=== PATIENT | male | born 1955 | race Two or more races ===

== ENCOUNTER 2016-10-02 20:22 | Emergency (ER) | payer MEDICAID ==
[2016-10-02 20:37] VITALS: BMI 27.7
--- NOTE | 2016-10-02 21:20 | ED PDOC ---
Arrival/HPI <Pérez Brooks - Last Filed: 10/02/16 21:33> - General Historian: Patient <Lilliana Rodriguez - Last Filed: 10/03/16 02:34> - General Chief Complaint: Psychiatric Evaluation Time Seen by Provider: 10/02/16 20:46 - History of Present Illness Narrative History of Present Illness (Text): 10/02/16 21:17 61yr old male with prior hx of cva and AMS presents today sent in from residential for AMS, aggressive behavior, trying to elope from residential today. pt denies headache, denies trauma, denies any pain. denies abdominal pain. (Lilliana Rodriguez) Past Medical History - Provider Review Nursing Documentation Reviewed: Yes - Travel History Have you recently traveled outside [place] w/in the past 3 mons?: No - Tetanus Immunization Tetanus Immunization: Unknown - Neurological HX Cerebrovascular Accident: (Yes; 2009) Hx Dementia: (yes; since 2009) Other/Comment: Aphasia - Psychiatric Hx Substance Use: (poor historian) <Lilliana Rodriguez - Last Filed: 10/03/16 02:34> Family/Social History - Physician Review Nursing Documentation Reviewed: Yes Family/Social History: Unknown Family HX Smoking Status: Poor histo Hx Alcohol Use: (poor historian) Hx Substance Use: (poor historian) <Lilliana Rodriguez - Last Filed: 10/03/16 02:34> Allergies/Home Meds <Pérez Brooks - Last Filed: 10/02/16 21:33> <Lilliana Rodriguez - Last Filed: 10/03/16 02:34> Allergies/Adverse Reactions: Allergies No Known Allergies Allergy (Verified 10/02/16 20:35) Home Medications: Home Meds Medication Instructions Recorded Confirmed Acetaminophen [Tylenol 325mg tab] 325 mg PO Q4H 10/02/16 10/02/16 Aspirin [Aspirin Chewable] 81 mg PO DAILY 10/02/16 10/02/16 Atorvastatin [Lipitor] 10 mg PO DAILY 10/02/16 10/02/16 Ramipril [Altace] 10 mg PO DAILY 10/02/16 10/02/16 Review of Systems - Review of Systems Systems not reviewed;Unavailable: Altered Mental Status Respiratory: absent: SOB Cardiovascular: absent: Chest Pain Gastrointestinal: absent: Abdominal Pain Musculoskeletal: absent: Arthralgias Neurological: absent: Headache <Lilliana Rodriguez - Last Filed: 10/03/16 02:34> Physical Exam Vital Signs Reviewed: Yes Temperature: Afebrile Blood Pressure: Hypertensive Pulse: Tachycardic Respiratory Rate: Normal Appearance: Positive for: Well-Appearing, Non-Toxic, Comfortable Pain Distress: None Mental Status: Positive for: Agitated - Systems Exam Head: Present: Atraumatic Pupils: Present: PERRL Extroacular Muscles: Present: EOMI Mouth: Present: Moist Mucous Membranes Neck: Present: Normal Range of Motion Respiratory/Chest: Present: Clear to Auscultation, Good Air Exchange. No: Respiratory Distress, Accessory Muscle Use Cardiovascular: Present: Regular Rate and Rhythm, Normal S1, S2. No: Murmurs Abdomen: No: Tenderness, Distention Upper Extremity: Present: Other (contracted right hand.) Lower Extremity: Present: Normal Inspection, Normal ROM Skin: Present: Warm, Dry Psychiatric: Present: Alert <Lilliana Rodriguez - Last Filed: 10/03/16 02:34> Vital Signs Temp Pulse Resp BP Pulse Ox 10/03/16 02:13 98.5 F 61 16 147/76 98 10/02/16 23:39 87 18 146/77 100 10/02/16 20:41 98.8 F 110 H 20 153/72 H 100 Medical Decision Making <Pérez Brooks - Last Filed: 10/02/16 21:33> <Lilliana Rodriguez - Last Filed: 10/03/16 02:34> ED Course and Treatment: 10/02/16 21:20 Patient is nontoxic . appears agitated. hitting himself in the head. doesnt want to be here. sent by residential for evaluation. pt placed into restrains as he is yelling and hitting himself in the head and swinging arms at others. CBC WNL CMP WNL Tylenol WNL Salicylate WNL Alcohol level WNL Urine drug screen: wnl UA; wnl cxr: wnl ekg sinus tachycardia at 101 bpm normal axis normal intervals and no ST elevations ct head; FINDINGS: Brain: No acute intracranial hemorrhage. A large area of decreased attenuation is identified within the distribution of the anterior branches of the left middle cerebral artery, consistent with prior cerebral infarction. Otherwise age-appropriate periventricular white matter disease. No edema. Ventricles: Subtle ex vacuo dilatation of the frontal horn of the left lateral ventricle. Otherwise ageappropriate ventriculomegaly. Bones: No acute displaced fracture. Sinuses: Unremarkable as visualized. No acute sinusitis. Mastoid air cells: Unremarkable as visualized. No mastoid effusion. IMPRESSION: No acute intracranial hemorrhage, or suspicious mass effect. Findings consistent with prior cerebral infarction within the distribution of the anterior branches of the left middle cerebral artery, as detailed above pt is medically cleared for PES evaluation Patient was seen and evaluated by PES screener: yris. pt cleared psychiatrically to return to residential. pt remains calm in er. restrains removed; I discussed all results in depth with the patient. pt to be d/c back to residential. Impression; aggressive behavior follow up with Primary care physician return if symptoms worsen,persist or if new symptoms develop. (Lilliana Rodriguez) - Lab Interpretations Lab Results: 10/03/16 01:45 10/02/16 21:30 Lab Results 10/03/16 01:45: WBC 8.7, RBC 4.56, Hgb 12.3 L, Hct 38.0 L, MCV 83.3, MCH 27.0, MCHC 32.4, RDW 13.1, Plt Count 139, MPV 12.2 H, Gran % 68.0, Lymph % (Auto) 23.4 , Coleman % (Auto) 7.4 H, Eos % (Auto) 1.0 L, Baso % (Auto) 0.2, Gran # 5.91, Lymph # 2.0, Coleman # 0.6, Eos # 0.1, Baso # 0.02 10/02/16 23:00: Urine Opiates Screen Negative, Urine Methadone Screen Negative, Ur Barbiturates Screen Negative, Ur Phencyclidine Scrn Negative, Ur Amphetamines Screen Negative, U Benzodiazepines Scrn Negative, U Oth Cocaine Metabols Negative, U Cannabinoids Screen Negative 10/02/16 23:00: Urine Color Yellow, Urine Appearance Clear, Urine pH 7.0, Ur Specific [place] 1.020, Urine Protein Negative, Urine Glucose (UA) Negative, Urine Ketones Negative, Urine Blood Negative, Urine Nitrate Negative, Urine Bilirubin Negative, Urine Urobilinogen 1.0 H, Ur Leukocyte Esterase Negative 10/02/16 21:30: WBC Cancelled, RBC Cancelled, Hgb Cancelled, Hct Cancelled, MCV Cancelled, MCH Cancelled, MCHC Cancelled, RDW Cancelled, Plt Count Cancelled, MPV Cancelled, Gran % Cancelled, Lymph % (Auto) Cancelled, Coleman % (Auto) Cancelled, Eos % (Auto) Cancelled, Baso % (Auto) Cancelled, Gran # Cancelled, Lymph # Cancelled, Coleman # Cancelled, Eos # Cancelled, Baso # Cancelled 10/02/16 21:30: Alcohol, Quantitative < 10 10/02/16 21:30: Salicylates < 1 L, Acetaminophen < 10.0 L 10/02/16 21:30: Sodium 142, Potassium 3.9, Chloride 101, Carbon Dioxide 26, Anion Gap 19, BUN 17, Creatinine 1.0, Est GFR ( Amer) > 60, Est GFR (Non- Af Amer) > 60, Random Glucose 107, Calcium 9.5, Total Bilirubin 0.6, AST 33, ALT 40, Alkaline Phosphatase 51, Total Protein 8.4 H, Albumin 4.6, Globulin 3.9 , Albumin/Globulin Ratio 1.2 - RAD Interpretation Radiology Orders: 10/02/16 20:54 HEAD W/O CONTRAST [CT] Stat 10/02/16 20:55 CHEST PORTABLE [RAD] Stat - 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 GABY has examined the patient and agrees with the treatment plan. <Pérez Brooks - Last Filed: 10/02/16 21:33> Disposition/Present on Arrival <Pérez Brooks - Last Filed: 10/02/16 21:33> - Present on Arrival Any Indicators Present on Arrival: No History of DVT/PE: No History of Uncontrolled Diabetes: No Urinary Catheter: No History of Decub. Ulcer: No History Surgical Site Infection Following: None - Disposition Have Diagnosis and Disposition been Completed?: Yes Disposition Time: 02:11 Patient Plan: Discharge <Lilliana Rodriguez - Last Filed: 10/03/16 02:34> - Disposition Diagnosis: Aggressive behavior Disposition: TRANSF TO [facility] Patient Problems: Current Active Problems Problem Status Onset Aggressive behavior Acute Condition: GOOD Additional Instructions: follow up with Primary care physician return if symptoms worsen,persist or if new symptoms develop. Referrals: Roverto Rizo MD [Primary Care Provider] - Follow up with primary
[2016-10-02 22:04] LABS: ALB/GLOB RATIO 1.2 (1.1-1.8); ALKALINE PHOSPHATASE 51 U/L (38-133); ALT/SGPT 40 U/L (7-56); AST/SGOT 33 U/L (15-59); BILIRUBIN,TOTAL 0.6 mg/dL (0.2-1.3); BLOOD UREA NITROGEN 17 mg/dL (7-21); CALCIUM 9.5 mg/dL (8.4-10.5); CARBON DIOXIDE 26 mmol/L (21-33); CHLORIDE 101 mmol/L (98-107); GFR AFRICAN-AMERICAN > 60; GLUCOSE,RANDOM 107 mg/dL (70-110); POTASSIUM 3.9 mmol/L (3.6-5.0); SODIUM 142 mmol/L (132-148); TOTAL PROTEIN 8.4 g/dL (5.8-8.3)
[2016-10-02 23:24] LABS: URINE BILIRUBIN NEGATIVE (NEGATIVE); URINE BLOOD NEGATIVE (NEGATIVE); URINE GLUCOSE (UA) NEGATIVE (NEGATIVE); URINE KETONE NEGATIVE (NEGATIVE); URINE LEUKOCYTE ESTERASE NEGATIVE Leu/uL (NEGATIVE); URINE PROTEIN NEGATIVE mg/dL (<30 mg/dL)
[2016-10-02 23:28] LABS: URINE APPEARANCE CLEAR (CLEAR); URINE COLOR YELLOW (YELLOW)
--- NOTE | 2016-10-02 23:51 | CT ---
EXAM: CT Head Without Intravenous Contrast CLINICAL HISTORY: 61 years old, male; Signs and symptoms; Altered mental status/memory loss; Confusion or disorientation; Additional info: AMS TECHNIQUE: Axial computed tomography images of the head/brain without intravenous contrast. This CT exam was performed using one or more of the following dose reduction techniques: automated exposure control, adjustment of the mA and/or kV according to patient size, and/or use of iterative reconstruction technique. COMPARISON: No relevant prior studies available. FINDINGS: Brain: No acute intracranial hemorrhage. A large area of decreased attenuation is identified within the distribution of the anterior branches of the left middle cerebral artery, consistent with prior cerebral infarction. Otherwise age-appropriate periventricular white matter disease. No edema. Ventricles: Subtle ex vacuo dilatation of the frontal horn of the left lateral ventricle. Otherwise age-appropriate ventriculomegaly. Bones: No acute displaced fracture. Sinuses: Unremarkable as visualized. No acute sinusitis. Mastoid air cells: Unremarkable as visualized. No mastoid effusion. IMPRESSION: No acute intracranial hemorrhage, or suspicious mass effect. Findings consistent with prior cerebral infarction within the distribution of the anterior branches of the left middle cerebral artery, as detailed above
[2016-10-03 01:53] LABS: ADD MANUAL DIFF? NO
[2016-10-03 01:55] LABS: BASO # 0.02 K/mm3 (0.0-2.0); BASO % 0.2 % (0.0-3.0); EOS # 0.1 (0.0-0.7); GRAN # 5.91 (1.4-6.5); LYMPH % 23.4 % (22.0-35.0); MEAN CELL VOLUME 83.3 fL (80.0-105.0); MEAN CORPUSCULAR HGB CONC 32.4 g/dl (31.0-37.0); MEAN PLATELET VOLUME 12.2 fl (7.0-11.0); MONO # 0.6 (0.1-0.6); MONO % 7.4 % (1.0-6.0); PLATELET COUNT 139 10^3/uL (120.0-450.0); RED CELL DISTRIBUTION WIDTH 13.1 % (11.5-14.5); WHITE BLOOD COUNT 8.7 10^3/ul (4.5-11.0)
[2016-10-03 02:13] VITALS: BP 147/76; PULSE 61; RESP 16; TEMP 98.5; O2SAT 98
--- NOTE | 2016-10-03 07:47 | RAD ---
HISTORY: pes eval COMPARISON: No prior. FINDINGS: LUNGS: Lateral right hemithoracic mild pleural-parenchymal reaction projects over a old healed right rib fractures. . Possible of a left mid lung zone pleural-parenchymal changes as well. No gross fractures here appreciated. Chronicity of this appearance is unknown. Probable left costocartilaginous junctional prominent calcification. PLEURA: No significant pleural effusion identified, no pneumothorax apparent. CARDIOVASCULAR: Mild cardiomegaly. Unfolded thoracic aorta OSSEOUS STRUCTURES: Thoracic spondylosis. Old healed right rib fractures VISUALIZED UPPER ABDOMEN: Normal. OTHER FINDINGS: Left neck surgical clips IMPRESSION: Old healed right rib fractures with associated right pleural parenchymal thickening/ reaction suggested. Summation of soft tissues versus left mid lung zone pleural parenchymal pathology . . Left-sided findings are indeterminate. If clinically indicated, consider noncontrast CT chest to further evaluate.
--- NOTE | 2016-10-03 21:49 | CARD ---
APPROVED REPORT EKG Measurement Heart [id number] <Conclusion> Sinus tachycardia Possible Left atrial enlargement Cannot rule out Anterior infarct, age undetermined Abnormal ECG
== END 2016-10-03 03:45 ==
LOC: ED 20:22 → MERGE 20:22 → ED 10-03 03:45
DX: R46.89 Other symptoms and signs involving appearance and behavior (principal); R45.1 Restlessness and agitation

== ENCOUNTER 2016-10-03 13:06 | Inpatient (IN) | payer MEDICAID ==
[2016-10-03 13:12] VITALS: BMI 27.4
[2016-10-03 13:17] VITALS: O2SAT 97
--- NOTE | 2016-10-03 14:33 | ED PDOC ---
Arrival/HPI - General Chief Complaint: Psychiatric Evaluation Time Seen by Provider: 10/03/16 14:32 Historian: Patient - History of Present Illness Narrative History of Present Illness (Text): 10/03/16 14:32 This 61 yo male with prior hx of cva and AMS is brought to this ED by BLS for evaluation of combative, and aggressive behavior x RAIL TRANSIT OPERATOR. Patient was recently discharged from this hospital for same complains after clear by PES. Patient went back to long-term, in which he continued with his aggressive behavior. Denies new complains. Time/Duration: Prior to Arrival Symptom Course: Unchanged Context: Home Past Medical History - Provider Review Nursing Documentation Reviewed: Yes - Tetanus Immunization Tetanus Immunization: Unknown - Neurological HX Cerebrovascular Accident: Yes (Yes; 2009) Hx Dementia: Yes (yes; since 2009) Other/Comment: Aphasia - Psychiatric Hx Substance Use: No (poor historian) Family/Social History - Physician Review Nursing Documentation Reviewed: Yes Family/Social History: No Known Family HX Smoking Status: Unknown If Ever Smoked Hx Alcohol Use: No (poor historian) Hx Substance Use: No (poor historian) Allergies/Home Meds Allergies/Adverse Reactions: Allergies No Known Allergies Allergy (Verified 10/03/16 22:36) Home Medications: Home Meds Medication Instructions Recorded Confirmed Acetaminophen [Tylenol 325mg tab] 325 mg PO Q4H 10/02/16 10/03/16 Aspirin [Aspirin Chewable] 81 mg PO DAILY 10/02/16 10/03/16 Atorvastatin [Lipitor] 10 mg PO DAILY 10/02/16 10/03/16 Ramipril [Altace] 10 mg PO DAILY 10/02/16 10/03/16 Review of Systems - Review of Systems Constitutional: Normal. absent: Fatigue, Weight Change, Fevers Eyes: Normal ENT: Normal Respiratory: Normal Cardiovascular: Normal Gastrointestinal: Normal Genitourinary Male: Normal Musculoskeletal: Normal Skin: Normal Neurological: Normal Endocrine: Normal Hemo/Lymphatic: Normal Psychiatric: Anxiety Physical Exam Vital Signs Temp Pulse Resp BP Pulse Ox 10/03/16 20:06 69 18 138/67 97 10/03/16 16:20 75 18 141/68 97 10/03/16 13:16 98.8 F 80 16 145/72 97 Temperature: Afebrile Blood Pressure: Normal Pulse: Regular Respiratory Rate: Normal Appearance: Positive for: Well-Appearing, Non-Toxic, Comfortable Pain Distress: None - Systems Exam Head: Present: Atraumatic, Normocephalic Pupils: Present: PERRL Extroacular Muscles: Present: EOMI Conjunctiva: Present: Normal Mouth: Present: Moist Mucous Membranes Neck: Present: Normal Range of Motion Respiratory/Chest: Present: Clear to Auscultation, Good Air Exchange. No: Respiratory Distress, Accessory Muscle Use Cardiovascular: Present: Regular Rate and Rhythm, Normal S1, S2. No: Murmurs Abdomen: Present: Normal Bowel Sounds. No: Tenderness, Distention, Peritoneal Signs Back: Present: Normal Inspection. No: CVA Tenderness Upper Extremity: Present: Normal Inspection, Normal ROM, Neurovascularly Intact , Capillary Refill < 2s. No: Cyanosis, Edema Lower Extremity: Present: Normal Inspection, NORMAL PULSES, Normal ROM, Neurovascularly Intact, Capillary Refill < 2 s. No: Edema Neurological: Present: GCS=15, CN II-XII Intact, Speech Normal Skin: Present: Warm, Dry, Normal Color. No: Rashes Psychiatric: Present: Alert Medical Decision Making ED Course and Treatment: 10/03/16 19:58 I spoke with PES screener who agreed with admission DX Adjustment disorder Re-evaluation Time: 19:59 Reassessment Condition: Re-examined, Improving,but remains with symptoms - Lab Interpretations Lab Results: Lab Results 10/03/16 16:00: Alcohol, Quantitative < 10 10/03/16 16:00: Salicylates < 1 L, Acetaminophen < 10.0 L I have reviewed the lab results: Yes Interpretation: No clinic. lab abnormalty - Medication Orders Current Medication Orders: Acetaminophen (Tylenol 325mg Tab) 650 mg PO Q4H PRN PRN Reason: Pain, Mild (1-3) Al Hydrox/Mg Hydrox/Simethicone (Maalox Plus 30 Ml) 30 ml PO DAILY PRN PRN Reason: Upset Stomach Aspirin (Aspirin Chewable) 81 mg PO DAILY [facility] Last Admin: 10/04/16 08:56 Dose: 81 mg Atorvastatin Calcium (Lipitor) 10 mg PO DAILY [facility] Last Admin: 10/04/16 08:56 Dose: 10 mg Lorazepam (Ativan) 0.5 mg PO HS [facility] PRN Reason: Protocol Last Admin: 10/03/16 21:57 Dose: 0.5 mg Re-Assess: Reassess Psych Meds Document 10/03/16 22:57 DCP (Rec: 10/04/16 03:13 DCP [id number]) Reassess Psych Med Effective Magnesium Hydroxide (Milk Of Magnesia) 30 ml PO DAILY PRN PRN Reason: Constipation Ramipril (Altace) 20 mg PO DAILY [facility] Last Admin: 10/04/16 08:55 Dose: 20 mg Risperidone (Risperdal Oral Soln) 0.5 mg PO AMHS NAVIN PRN Reason: Protocol Last Admin: 10/04/16 11:01 Dose: 0.5 mg Re-Assess: Reassess Psych Meds Document 10/04/16 11:31 ABO (Rec: 10/04/16 12:35 ABO [id number]) Reassess Psych Med Effective Valproate Sodium (Depakene) 250 mg PO BID [facility] Last Admin: 10/04/16 11:01 Dose: 250 mg Zaleplon (Sonata) 5 mg PO HS PRN PRN Reason: Insomnia Last Admin: 10/03/16 21:57 Dose: 5 mg Discontinued Medications Risperidone (Risperdal Tab) 0.5 mg PO BID NAVIN PRN Reason: Protocol Last Admin: 10/04/16 08:56 Dose: 0.5 mg Re-Assess: Reassess Psych Meds Document 10/04/16 09:56 ABO (Rec: 10/04/16 10:57 ABO [id number]) Reassess Psych Med Ineffective-LIP notifed Disposition/Present on Arrival - Present on Arrival Any Indicators Present on Arrival: No History of DVT/PE: No History of Uncontrolled Diabetes: No Urinary Catheter: No History of Decub. Ulcer: No History Surgical Site Infection Following: None - Disposition Have Diagnosis and Disposition been Completed?: Yes Diagnosis: Adjustment disorder Disposition: HOSPITALIZED Disposition Time: 19:59 Patient Plan: Admission Patient Problems: Current Active Problems Problem Status Onset Adjustment disorder Acute Condition: STABLE
[2016-10-03] MEDS ORDERED: Alum-Mag Hydrox-Simethicone Susp (30 mL) PO PRN (21:22)
[2016-10-03] MEDS ORDERED: Magnesium Hydroxide Susp 30 ml UD PO PRN (21:22)
[2016-10-04 08:05] LABS: CHOLESTEROL 146 mg/dL (130-200); GLUCOSE,FASTING 84 mg/dL (65-110)
--- NOTE | 2016-10-04 11:53 | CP.PCM.HP ---
<Mayank Tran - Last Filed: 10/04/16 16:59> History of Present Illness - History of Present Illness History of Present Illness: 61M w/ PMHx of HTN, CVA, aphasia, dysarthria, hx of left CEA, presented to the hospital after trying to elope from detention. According to records patient was admitted to psychiatric unit for evaluation of AMS, and aggression, pt transferred from [facility]. Upon examination patient was able to answer yes and no questions. However when patient tried to speak he mumbled incoherent words. Patient able to shake his head "yes" "no" to questions. During medical interview patient was pleasant and non-violent. As per medical records, patient's aggressive behavior is newly noted, is no history of such type of behavior in the past. Currently patient denies headaches, changes in vision, chest pain, shortness of breath, abdominal pain. VSS. PMHx: CVA, HTN, aphasia, dysarthria PSurgHx: L CEA Allergies: NKDA Meds: as per Med Rec Present on Admission - Present on Admission Any Indicators Present on Admission: No Review of Systems - Review of Systems Review of Systems: 12 pt ROS carried out; unremarkable, except as stated in HPI Past Patient History - Tetanus Immunizations Tetanus Immunization: Unknown - Past Social History Smoking Status: Unknown If Ever Smoked - NEUROLOGICAL HX Cerebrovascular Accident: Yes (Yes; 2009) Hx Dementia: Yes (yes; since 2009) Other/Comment: Aphasia - PSYCHIATRIC Hx Substance Use: No (poor historian) - SURGICAL HISTORY Hx Surgeries: No (mention of surgery on detention chart) Meds Allergies/Adverse Reactions: Allergies Allergy/AdvReac Type Severity Reaction Status Date / Time No Known Allergies Allergy Verified 10/03/16 22:36 Physical Exam - Constitutional Appears: No Acute Distress - Head Exam Head Exam: NORMOCEPHALIC - Eye Exam Eye Exam: EOMI - ENT Exam ENT Exam: Mucous Membranes Moist - Respiratory Exam Respiratory Exam: NORMAL BREATHING PATTERN - Cardiovascular Exam Cardiovascular Exam: +S1, +S2 - GI/Abdominal Exam GI & Abdominal Exam: Soft - Neurological Exam Neurological exam: Alert - Psychiatric Exam Additional comments: pleasant non-aggressive - Skin Skin Exam: Dry, Intact Results - Vital Signs Recent Vital Signs: Last Vital Signs Temp 97.9 F 10/04/16 07:43 Pulse 91 H 10/04/16 07:43 Resp 20 10/04/16 07:43 BP 130/70 10/04/16 07:43 Pulse Ox 97 10/03/16 20:06 - Labs Labs: Laboratory Results - last 24 hr 10/04/16 10/04/16 07:15 07:15 Fasting Glucose 84 Triglycerides 63 Cholesterol 146 LDL Cholesterol Direct 71 HDL Cholesterol 47 TSH 3rd Generation 0.77 Assessment & Plan - Assessment and Plan (Free Text) Assessment: 61M w/ PMHx of HTN, CVA, aphasia, dysarthria, hx of left CEA presents to hospital from detention for aggressive and non-compliant behavior Plan: HTN -Ramipril (20mg daily) CVA -Aspirin 81mg -Lipitor 10mg -aphasia -dysarthria -Limited ROM right extremity R/o delirium, R/o dementia with behavioral disturbances and psychotic symptoms -First documented act of aggressive behavior -Valproic Acid -Risperidone -Zaleplon -As per psychiatry Diet -heart healthy diet -low fat, low Na+ From medical standpoint patient is stable, will sign-off, reconsult as needed. Further recs per psychiatry. Patient seen and examined with medical attending. Assessment and Plan discussed with medical attending. <Shannan RANDALL,[facility] - Last Filed: 10/04/16 17:27> Results - Vital Signs Recent Vital Signs: Last Vital Signs Temp 97.9 F 10/04/16 07:43 Pulse 91 H 10/04/16 07:43 Resp 20 10/04/16 07:43 BP 130/70 10/04/16 07:43 Pulse Ox 97 10/03/16 20:06 - Labs Labs: Laboratory Results - last 24 hr 10/04/16 10/04/16 07:15 07:15 Fasting Glucose 84 Triglycerides 63 Cholesterol 146 LDL Cholesterol Direct 71 HDL Cholesterol 47 TSH 3rd Generation 0.77 Attending/Attestation - Attestation I have personally seen and examined this patient.: Yes I have fully participated in the care of the patient.: Yes I have reviewed all pertinent clinical information: Yes Notes (Text): Patient was seen and examined with medical chemist .Agreed with resident assessment and plan, 61 Yrs old male with PMH of HTN,CVA(Left MCA ischemic stroke)with residual right sided weakness, dysarthia, PVD, Hyperlipidemia is admitted to Psychiatry floor for aggressive behaviour.There is no new focal weakness.He is ambulatory, his blood pressure is stable.At this time will recommend continuing Aspirin, JESSICA and statin for seconday prevention of stroke.Patient has dysarthia, as per Nursing staff, he is not having any swallowing issue , no chocking or coughing noticed during feeding.We will recommend changing diet to low cholesterol, 2 gram sodium diet.Patient LDL and HDL is in acceptable range at this time, will recommend continue current dose of lipitor. As there is no acute medical issue, we will sign off.Please call us back if any question. 10/04/16 17:23
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
--- NOTE | 2016-10-05 17:46 | PCM.PYCHPN ---
Psychiatric Progress Note - Psychiatric Progress Note Patient seen today, length of contact: 30min Patient Chief Complaint: "ke-ke-ke" Problems Identified/Issues Discussed: psychiatry educate patient about treatment plan, medication management,patient was able to communicate with sign language, was not able to tell what is his [place] language Medical Problems: h/o CVA, h/o HTN, aphasia Diagnostic Results: Lab Results 10/04/16 07:15: RPR Nonreactive 10/04/16 07:15: TSH 3rd Generation 0.77 10/04/16 07:15: Fasting Glucose 84, Triglycerides 63, Cholesterol 146, LDL Cholesterol Direct 71, HDL Cholesterol 47 10/03/16 16:00: Alcohol, Quantitative < 10 10/03/16 16:00: Salicylates < 1 L, Acetaminophen < 10.0 L Vital Signs Temp Pulse Resp BP Pulse Ox 10/05/16 16:19 106 H 105/73 10/04/16 17:35 109 H 20 115/62 10/04/16 07:43 97.9 F 91 H 20 130/70 10/03/16 20:32 20 10/03/16 20:06 69 18 138/67 97 10/03/16 16:20 75 18 141/68 97 10/03/16 13:16 98.8 F 80 16 145/72 97 DSM 5 Symptoms Update: shortly patient is 61 years old male, multiple medical issues including history of CVA, aphasia, not known previous psychiatric history, currently lives in [facility], we'll send for evaluation of agitated, aggressive behavior , altered mental status, patient needs further evaluation and stabilization, possible medications initiation and titration. Note patient came to the emergency room the prior the day of admission with the same presentation, [facility], patient was not improving, still has episodes of agitation and restless behavior. Patient is very poor and unreliable historian, was not able to participate in interview, patient was communicating through gesticulation, as well as by nodding his head, patient was keep repeating "ke-ke-ke". Overall patient was pleasant and corporative, no agitation or aggression,at times patient was smiling inappropriately. patient is compliant with the medications, treatment plan, patient is pleasant and visible on the unit, asked to be shaved, no agitation, no aggression. collaterals were obtained from the jail, as per staff patient does not have history of agitation or aggression,for the past 2 days patient was restless , wanted to leave the jail, was not able to be redirected, and this type of behavior is new for the patient. as per [facility] pt does not have h/o mental illness. patient tolerates medication well, no side effects observed or reported, aims 0 , no EPS. Impression: altered mental status Dementia with behavioral disturbances Medication Change: Yes (depakote initiated Risperdal initiated) Medical Record Reviewed: Yes Consults ordered or reviewed: medical consult appreciated, Neurology consult was called Mental Status Examination - Cognitive Function Orientation: Person Memory: Impaired Attention: Poor Concentration: Poor Association: Loose Fund of Knowledge: Poor - Mood Mood: Neutral (unable to assess but seems to beneutral) - Affect Affect: Constricted (but reactive at times patient smiles inappropriately) - Formal Thought Process Formal Thought Process: No Impairment - Suicidal Ideation Suicidal Ideation: No - Homicidal Ideation Homicidal Ideation: No Goal/Treatment Plan - Goal/Treatment Plan Need for Continued Stay: Remain at risks for inpatient hospitalization, Severe depression anxiety, Discharge may exacerbated symptoms, Severe functional impairment Progress Toward Problem(s) and Goals/Treatment Plan: milieu, structure, supportive therapy Medications from the jail reconciled see below: Acetaminophen [Tylenol 325mg tab] 325 mg PO Q4H 10/02/16 Aspirin [Aspirin Chewable] 81 mg PO DAILY 10/02/16 Atorvastatin [Lipitor] 10 mg PO DAILY 10/02/16 Ramipril [Altace] 10 mg PO DAILY 10/02/16 patient will be initiated on mood stabilizer Depakote 250 mg twice a day for mood stabilization Risperdal liquid 0.5 mg twice a day for agitation medical team consultation appreciated Neurology consultation recommended Patient legal guardian sign consent for 

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
[2016-10-07 07:45] VITALS: RESP 20
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
--- NOTE | 2016-10-07 20:12 | CON ---
DATE: 10/07/2016 HISTORY OF PRESENT ILLNESS: This is a 61-year-old male with past medical history of hypertension, CV A with aphasia and right-sided weakness residual, and the patient came to the hospital because he ___ __ from the retirement, and was getting aggressive, so came to transfer from [facility] to [facility]. Called to evaluate the patient. PAST MEDICAL HISTORY: CVA, hypertension, aphasia, dysarthria. ALLERGIES: No known drug allergy. PHYSICAL EXAMINATION: HEENT: Normocephalic, atraumatic. NECK: Supple. NEUROLOGIC: Awake, oriented to self and aphasic. Cranial nerves II through XII were tested. Pupils reactive. EOM intact. Moves all the extremities responded except weakness on the right side, resid ual from previous stroke. CAT scan of the head was done, which was reported negative. Sensory appears intact. Cerebellar gait, able to ambulate. IMPRESSION: Intermittent confusional state, encephalopathy and altered mental status secondary super imposed on left hemispheric stroke with aphasia with residual right-sided weakness. PLAN: Continue present management. We will follow up with a CAT scan of the head without contrast. Owen Cook MD cc: [id number] TT: 10/07/2016 20:12:11 Confirmation # [id number] Dictation # [id number] hina
--- NOTE | 2016-10-08 07:06 | CT ---
PROCEDURE: CT HEAD WITHOUT CONTRAST. HISTORY: AMS COMPARISON: Comparison is made to the previous study dated 10/02/2016 TECHNIQUE: Axial computed tomography images were obtained through the head/brain without intravenous contrast. Radiation dose: Total exam DLP = 774.23 mGy-cm. This CT exam was performed using one or more of the following dose reduction techniques: Automated exposure control, adjustment of the mA and/or kV according to patient size, and/or use of iterative reconstruction technique. FINDINGS: HEMORRHAGE: No intracranial hemorrhage. BRAIN: Focal encephalomalacia at the left frontal lobe is again seen suggestive of old infarct. Moderate atrophy and white matter changes are again seen. VENTRICLES: Unremarkable. No hydrocephalus. CALVARIUM: Unremarkable. PARANASAL SINUSES: Sinuses mucosal disease including almost complete opacification of the frontal and ethmoid sinuses is again noted. MASTOID AIR CELLS: Unremarkable as visualized. No inflammatory changes. OTHER FINDINGS: None. IMPRESSION: No evidence of acute intracranial hemorrhage intracranial collection mass effect or midline shift. Re- demonstration of encephalomalacia at the left frontal lobe suggestive of old infarct. Moderate atrophy and kilj-ic-vaygrftu chronic microvascular ischemic disease. Moderate sinuses mucosal disease particularly in the frontal and ethmoid sinuses.
--- NOTE | 2016-10-08 13:15 | CP.PCM.PCO ---
Assessment/Plan - Assessment and Plan (Free Text) Assessment: NEURO COMMUNICATION NOTE: NO ACUTE EVETNS OVERNIGHT. CT HEAD REVIEWED OLD LEFT FRONTAL ENCEPHOLMALICA SEEN INDICATING OLD LEFT FRONTAL CVA WHICH IS RESPONSIBLE FOR PTS APHASIAS. IMPRESSION: INTERMITTENT CONFUSION STATE SUPERIMPOSED MILD COGNITIVE IMPAIRMENT WITH PRIOR LEFT FRONTAL CVA. C/W ASA, STATIN, AVOID NIGHT TIME INTERRUPTIONS, CO Q10 400MG PO DAILY AND CONTINUE WITH PRESENT PSYCH MANAGEMENT. WILL SIGN OFF. DR. Adrian WEINER.
--- NOTE | 2016-10-08 14:18 | PCM.PYCHPN ---
Psychiatric Progress Note - Psychiatric Progress Note Patient seen today, length of contact: 30min Patient Chief Complaint: "ke-ke-ke" Problems Identified/Issues Discussed: psychiatry educate patient about treatment plan, medication management,patient was able to communicate with sign language, was not able to tell what is his [place] language Medical Problems: h/o CVA, h/o HTN, aphasia Diagnostic Results: Lab Results 10/04/16 07:15: RPR Nonreactive 10/04/16 07:15: TSH 3rd Generation 0.77 10/04/16 07:15: Fasting Glucose 84, Triglycerides 63, Cholesterol 146, LDL Cholesterol Direct 71, HDL Cholesterol 47 10/03/16 16:00: Alcohol, Quantitative < 10 10/03/16 16:00: Salicylates < 1 L, Acetaminophen < 10.0 L Vital Signs Temp Pulse Resp BP Pulse Ox 10/05/16 16:19 106 H 105/73 10/04/16 17:35 109 H 20 115/62 10/04/16 07:43 97.9 F 91 H 20 130/70 10/03/16 20:32 20 10/03/16 20:06 69 18 138/67 97 10/03/16 16:20 75 18 141/68 97 10/03/16 13:16 98.8 F 80 16 145/72 97 DSM 5 Symptoms Update: shortly patient is 61 years old male, multiple medical issues including history of CVA, aphasia, not known previous psychiatric history, currently lives in [facility], we'll send for evaluation of agitated, aggressive behavior , altered mental status, patient needs further evaluation and stabilization, possible medications initiation and titration. Patient is very poor and unreliable historian, was not able to participate in interview, patient was communicating through gesticulation, as well as by nodding his head, patient was keep repeating "ke-ke-ke". Overall patient was pleasant and corporative, no agitation or aggression,at times patient was smiling inappropriately. patient is compliant with the medications, treatment plan, patient is pleasant and visible on the unit, asked to be shaved. patient tolerates medication well, no side effects observed or reported, aims 0 , no EPS. Legal guardian new accounts banking representative was called today [phone], spoke to Areli Camacho, discussed tx plan and risk, benefits and alternatives of meds. Pt was seen by neurologist today, no further recommendations, signed off. Impression: altered mental status Dementia with behavioral disturbances Medication Change: No (pt is stable on current doses, but liquid form was changed to pills and ER ) Medical Record Reviewed: Yes (notes, reports, labs, vitals) Consults ordered or reviewed: medical consult appreciated, Neurology consult was called, consult appreciated OLD LEFT FRONTAL ENCEPHOLMALICA SEEN INDICATING OLD LEFT FRONTAL CVA WHICH IS RESPONSIBLE FOR PTS APHASIAS. INTERMITTENT CONFUSION STATE SUPERIMPOSED MILD COGNITIVE IMPAIRMENT WITH PRIOR LEFT FRONTAL CVA. C/W ASA, STATIN, AVOID NIGHT TIME INTERRUPTIONS, CO Q10 400MG PO DAILY AND CONTINUE WITH PRESENT PSYCH MANAGEMENT. NEURO: SIGN OFF. Mental Status Examination - Cognitive Function Orientation: Person Memory: Impaired Attention: Poor (imrpoving) Concentration: Poor (improving) Association: Loose Fund of Knowledge: Poor - Mood Mood: Depressed (denied) - Affect Affect: Broad (reactive) - Formal Thought Process Formal Thought Process: No Impairment - Suicidal Ideation Suicidal Ideation: No - Homicidal Ideation Homicidal Ideation: No Goal/Treatment Plan - Goal/Treatment Plan Need for Continued Stay: Remain at risks for inpatient hospitalization, Severe depression anxiety, Discharge may exacerbated symptoms, Severe functional impairment Progress Toward Problem(s) and Goals/Treatment Plan: milieu, structure, supportive therapy Medications from the senior living reconciled see below: Acetaminophen [Tylenol 325mg tab] 325 mg PO Q4H 10/02/16 Aspirin [Aspirin Chewable] 81 mg PO DAILY 10/02/16 Atorvastatin [Lipitor] 10 mg PO DAILY 10/02/16 Ramipril [Altace] 10 mg PO DAILY 10/02/16 ER Depakote 500 mg hs a day for mood stabilization Risperdal 0.5 mg twice a day for agitation medical team consultation appreciated Neurology consultation recommended Patient legal guardian sign consent for treatment 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
[2016-10-09 06:54] VITALS: BP 133/86; PULSE 97; TEMP 97.9
--- NOTE | 2016-10-09 16:12 | PCM.PYCHDC ---
Mental Status Examination - Mental Status Examination Orientation: Person, Place, Situation Memory: Impaired (which is chronic) Mood: Neutral Affect: Broad Attention: WNL Concentration: WNL Language: Aphasia (hronic) Association: WNL (heart to evaluate because patient is aphasic) Fund of Knowledge: WNL (heart to evaluate patient is aphasic) Formal Thought Process: Other (patient does not appear to be psychotic) Description of patient's judgement and insight: improved Psychotic Thoughts and Behaviors: improved patient does not appear to be psychotic, no behavioral incident, no aggression, no agitation Suicidal Ideation: No Current Homicidal Ideation?: No Plan: patient denied thoughts of harming himself or others denied intent or plan Discharge Summary - Discharge Note Reason for Hospitalization: Pt was admitted to the psychiatric inpatient unit for evaluation and stabilization of altered mental status, aggression, agitated behavior, trying to elope from the residential. Psychiatric History (includes Medical, Family, Personal Hx): See HPI Laboratory Data: Lab Results 10/04/16 07:15: RPR Nonreactive 10/04/16 07:15: TSH 3rd Generation 0.77 10/04/16 07:15: Fasting Glucose 84, Triglycerides 63, Cholesterol 146, LDL Cholesterol Direct 71, HDL Cholesterol 47 10/03/16 16:00: Alcohol, Quantitative < 10 10/03/16 16:00: Salicylates < 1 L, Acetaminophen < 10.0 L Vital Signs Temp Pulse Resp BP Pulse Ox 10/09/16 06:54 97.9 F 97 H 20 133/86 10/08/16 16:28 75 141/78 10/08/16 07:36 98.0 F 111 H 20 155/83 H 10/07/16 21:20 112/70 10/07/16 07:44 97.6 F 79 20 130/74 10/06/16 06:42 97.8 F 88 18 98/62 L 10/05/16 16:19 106 H 105/73 10/04/16 17:35 109 H 20 115/62 10/04/16 07:43 97.9 F 91 H 20 130/70 10/03/16 20:32 20 10/03/16 20:06 69 18 138/67 97 10/03/16 16:20 75 18 141/68 97 10/03/16 13:16 98.8 F 80 16 145/72 97 Consultations:: List each consultation separately and include: 1. Reason for request. 2. Findings. 3. 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 INTERMITTENT CONFUSION STATE SUPERIMPOSED MILD COGNITIVE IMPAIRMENT WITH PRIOR LEFT FRONTAL CVA. C/W ASA, STATIN, AVOID NIGHT TIME INTERRUPTIONS, CO Q10 400MG PO DAILY AND CONTINUE WITH PRESENT PSYCH MANAGEMENT. NEURO: SIGN OFF. Summary of Hospital Course include:: 1. Description of specific treatment plan utilized for patients during their course of treatmen. 2. Summarize the time- course for resolution of acute symptoms and/or regressed behaviors. 3. Describe issues identified and worked on during hospitalization. 4. Describe medication utilized. 5. Describe medical problems identified and treated. 6. Reassessment of suicide risk Summary of Hospital Course: shortly patient is 61 years old male, multiple medical issues including history of CVA, aphasia, not known previous psychiatric history, currently lives in [facility], we'll send for evaluation of agitated, aggressive behavior , altered mental status, patient needs further evaluation and stabilization, possible medications initiation and titration. Note patient came to the emergency room the prior the day of admission with the same presentation, patient was sent back to the residential, patient was not improving, still has episodes of agitation and restless behavior. Patient is very poor and unreliable historian, was not able to participate in interview, patient was communicating through gesticulation, as well as by nodding his head, patient was keep repeating "ne/ne/ne". Overall patient was pleasant and corporative, no agitation or aggression,at times patient was smiling inappropriately. When this telegraphic typewriter repairer asked patient is it hard for him to express himself patient not that he's had When this telegraphic typewriter repairer asked if patient feels irritable and angry patient nodded his had yes Patient denied being depressed denied thoughts harming himself or others collaterals were obtained from the residential, as per staff patient does not have history of agitation or aggression,for the past 2 days patient was restless , wanted to leave the residential, was not able to be redirected, and this type of behavior is new for the patient. as per NH pt does not have h/o mental illness. meds were reviewed pt denied h/o using drugs or alcohol denied smoking medical h/o: h/o CVA, h/o HTN, aphasia Lab Results 10/04/16 07:15: TSH 3rd Generation 0.77 10/04/16 07:15: Fasting Glucose 84, Triglycerides 63, Cholesterol 146, LDL Cholesterol Direct 71, HDL Cholesterol 47 10/03/16 16:00: Alcohol, Quantitative < 10 10/03/16 16:00: Salicylates < 1 L, Acetaminophen < 10.0 L Vital Signs Temp Pulse Resp BP Pulse Ox 10/04/16 07:43 97.9 F 91 H 20 130/70 10/03/16 20:32 20 10/03/16 20:06 69 18 138/67 97 10/03/16 16:20 75 18 141/68 97 10/03/16 13:16 98.8 F 80 16 145/72 97 Lab Results 10/04/16 07:15: RPR Nonreactive 10/04/16 07:15: TSH 3rd Generation 0.77 10/04/16 07:15: Fasting Glucose 84, Triglycerides 63, Cholesterol 146, LDL Cholesterol Direct 71, HDL Cholesterol 47 10/03/16 16:00: Alcohol, Quantitative < 10 10/03/16 16:00: Salicylates < 1 L, Acetaminophen < 10.0 L Vital Signs Temp Pulse Resp BP Pulse Ox 10/09/16 06:54 97.9 F 97 H 20 133/86 10/08/16 16:28 75 141/78 10/08/16 07:36 98.0 F 111 H 20 155/83 H 10/07/16 21:20 112/70 10/07/16 07:44 97.6 F 79 20 130/74 10/06/16 06:42 97.8 F 88 18 98/62 L 10/05/16 16:19 106 H 105/73 10/04/16 17:35 109 H 20 115/62 10/04/16 07:43 97.9 F 91 H 20 130/70 10/03/16 20:32 20 10/03/16 20:06 69 18 138/67 97 10/03/16 16:20 75 18 141/68 97 10/03/16 13:16 98.8 F 80 16 145/72 97 over the course of this hospitalization patient was stabilized on the following medication: Depakote 500 mg hs a day for mood stabilization Risperdal 0.5 mg twice a day for agitation and mood stabilization This telegraphic typewriter repairer spoke to patient's legal guardian credit resolution representative, please see my yesterday notes for more detailed information, treatment plan was discussed in details medications risk benefits alternatives discussed. Over the course of this hospitalization pt was attending groups, pt also had medication management, had therapeutic milieu. Overall pt improved significantly, pt's affect became brighter, pt was less depressed, has realistic future oriented plans, pt also does not appear to be psychotic, or anxious, pt was socially appropriate, no behavioral issues, patient has aphasia, had difficulty to express himself. At the time of the discharge pt denied been depressed, denied thoughts of harming self or others, denied psychotic symptoms, and pt does not appeared to be psychotic, denied been anxious, was considered to pose no threat to self or others, will be following up with psychiatrist at the residential, information about follow up appointment, time and address provided to the pt, it is residential responsibility to provided patient with follow up appointments, PMD as well as specialists (see SW note for more detailed information). In case pt will need to obtain results of studies pending at discharge pt was provided with contact information of Psychiatric Inpatient unit [phone] as well as Medical Record Department [phone]. patient should continue on all of his medications, please see medication reconciliation form Pt was educated about safety plan in case of worsening of symptoms or in case of suicidal or homicidal ideation call 911 or go to the nearest ER, also was educated to take meds as prescribed and stay away from drugs, pt verbalized understanding. - Diagnosis (1) Dementia with behavioral disturbance Status: Acute (2) Adjustment disorder Status: Acute - Final Diagnosis (DSM 5) Condition upon Discharge: STABLE Disposition: HOME/ ROUTINE Follow-up Treatment Plan: At the time of the discharge pt denied been depressed, denied thoughts of harming self or others, denied psychotic symptoms, and pt does not appeared to be psychotic, denied been anxious, was considered to pose no threat to self or others, will be following up with psychiatrist at the residential, information about follow up appointment, time and address provided to the pt, it is residential responsibility to provided patient with follow up appointments, PMD as well as specialists (see SW note for more detailed information). In case pt will need to obtain results of studies pending at discharge pt was provided with contact information of Psychiatric Inpatient unit [phone] as well as Medical Record Department [phone]. patient should continue on all of his medications, please see medication reconciliation form Pt was educated about safety plan in case of worsening of symptoms or in case of suicidal or homicidal ideation call 911 or go to the nearest ER, also was educated to take meds as prescribed and stay away from drugs, pt verbalized understanding. Prescriptions/Medication Reconciliation: Divalproex [Depakote DR (*BID*)] 250 mg PO [facility] #30 ect Risperidone [Risperdal] 0.5 mg PO [facility] #30 tablet - Smoking Cessation Smoking Cessation Medication prescribed: No Reason for not providing: patient doesn't smoke - Antipsychotic Medications Pt discharged on 2 or more routine antipsychotic medications: No
== END 2016-10-09 12:07 | DRG 429 ==
LOC: ED 13:06 → PSYC 20:10
PROVIDERS: ADMIT Psychiatry & Neurology Psychiatry; ATTEND Psychiatry & Neurology Psychiatry
DX: F03.91 Unspecified dementia, unspecified severity, with behavioral disturbance (principal); G93.40 Encephalopathy, unspecified; F43.20 Adjustment disorder, unspecified; F32.89 Other specified depressive episodes; I10 Essential (primary) hypertension; I69.320 Aphasia following cerebral infarction; Z79.899 Other long term (current) drug therapy; Z91.19 Patient's noncompliance with other medical treatment and regimen; I73.9 Peripheral vascular disease, unspecified; E78.5 Hyperlipidemia, unspecified